=== PATIENT | male | born 2000 | race Caucasian/White ===

== ENCOUNTER 2021-07-01 08:34 | Emergency (ER) | payer BC ==
[2021-07-01] MEDS ORDERED: Lidocaine 1% 30 ML SDV INFILT ONE (09:39)
[2021-07-01] MEDS ORDERED: Bacitracin Oint 1 GM U/D Packet TOP ONE (10:06)
== END 2021-07-01 10:18 | disposition home or self-care (01) ==
LOC: DL.ED 08:34
DX: S61.412A Laceration without foreign body of left hand, initial encounter (principal); W26.0XXA Contact with knife, initial encounter
CPT/HCPCS: 12001; 99282-25; 99283